=== PATIENT | female | born 1990 | race American Indian/Alaskan Native ===

== ENCOUNTER 2017-04-20 13:35 | Emergency (ER) | payer SELFPAY ==
[2017-04-20 14:56] VITALS: BP 123/70
--- NOTE | 2017-04-20 16:31 | Emergency Department Report ---
ED N/V/D HPI - General Chief complaint: Nausea/Vomiting/Diarrhea Stated complaint: 9 WEEKS , HEADACHE AND NAUSEA Time Seen by Provider: 04/20/17 16:31 Source: patient, family Mode of arrival: Ambulatory Limitations: No Limitations - History of Present Illness Initial comments: Patient reports that she is 9 weeks and she is having fever and headache and nausea on and off. She states she does not have [facility] doctor as yet. Denies any vaginal bleeding or discharge. Denies any back pain or abdominal pain. Denies any shortness of breath or chest pain. She said she drinks at least 8 glasses of water a day. Denies any urinary burning frequency or urgency. MD complaint: nausea, other (Reports at 9 weeks headache and fever) Onset/Timin -: days(s) Associated Abdominal Pain: No Pain Scale: 0 Context: other (patient here reports that she is with headache, nausea without any vomiting and fever.) Associated Symptoms: fever/chills, headaches, nausea/vomiting. denies: myalgias , chest pain, cough, diaphoresis, loss of appetite, malaise, rash, dysuria, shortness of breath, syncope, weakness - Related Data Previous Rx's Medication Instructions Recorded Last Taken Type Vit No.130/Iron/FA 1 each PO QAM #30 tablet 04/20/17 Unknown Rx [ Tablet] Allergies Allergy/AdvReac Type Severity Reaction Status Date / Time No Known Allergies Allergy Unverified 04/20/17 16:50 ED Review of Systems ROS: Stated complaint: 9 WEEKS , HEADACHE AND NAUSEA Other details as noted in HPI Comment: All other systems reviewed and negative Constitutional: fever Eyes: denies: eye pain, eye discharge, vision change ENT: denies: throat pain, congestion Respiratory: no symptoms reported Cardiovascular: denies: chest pain, palpitations, dyspnea on exertion, edema, syncope Gastrointestinal: nausea. denies: abdominal pain, vomiting, diarrhea, constipation, hematemesis, melena, hematochezia Genitourinary: abnormal menses. denies: urgency, dysuria, frequency, hematuria , discharge Musculoskeletal: arthralgia. denies: back pain, joint swelling, myalgia Skin: denies: rash Neurological: headache. denies: weakness, numbness, paresthesias, confusion, abnormal gait, vertigo ED Past Medical Hx - Past Medical History Previous Medical History?: No - Surgical History Past Surgical History?: No - Family History Family history: no significant - Social History Smoking Status: Never Smoker Substance Use Type: None Other Social History: - Medications Home Medications: Home Medications Medication Instructions Recorded Confirmed Last Taken Type Vit No.130/Iron/FA 1 each PO QAM #30 tablet 04/20/17 Unknown Rx [ Tablet] ED Physical Exam - General Limitations: No Limitations General appearance: alert, in no apparent distress - Head Head exam: Present: atraumatic, normocephalic, normal inspection - Expanded Head Exam Expanded Head exam: Absent: laceration, abrasion, contusion, hematoma, racoon eyes, berg's sign, general tenderness, tenderness of temporal artery, CSF rhinorrhea , CSF otorrhea - Eye Eye exam: Present: normal appearance, PERRL, EOMI. Absent: scleral icterus, conjunctival injection, nystagmus, periorbital swelling, periorbital tenderness Pupils: Present: normal accommodation - ENT ENT exam: Present: normal exam, normal orophraynx, mucous membranes moist, TM's normal bilaterally, normal external ear exam - Neck Neck exam: Present: normal inspection, full ROM. Absent: tenderness, meningismus, lymphadenopathy - Respiratory Respiratory exam: Present: normal lung sounds bilaterally. Absent: respiratory distress, wheezes, rales, rhonchi, stridor, chest wall tenderness - Cardiovascular Cardiovascular Exam: Present: regular rate, normal rhythm, normal heart sounds. Absent: systolic murmur, diastolic murmur - GI/Abdominal GI/Abdominal exam: Present: soft, normal bowel sounds. Absent: distended, tenderness, guarding, rebound, rigid, organomegaly, mass, bruit, pulsatile mass , hernia - Extremities Exam Extremities exam: Present: normal inspection, full ROM, normal capillary refill , other (no clubbing cyanosis or edema noted to extremities. +2 pulses to extremities. No neurovascular compromise.). Absent: tenderness, pedal edema, joint swelling, calf tenderness - Back Exam Back exam: Present: normal inspection, full ROM. Absent: tenderness, CVA tenderness (R), CVA tenderness (L), muscle spasm, paraspinal tenderness, vertebral tenderness, rash noted - Neurological Exam Neurological exam: Present: alert, oriented X3, normal gait. Absent: motor sensory deficit, reflexes normal - Expanded Neurological Exam Expanded Neurological exam: Absent: innattentive, memory loss-remote event, memory loss- recent event, ataxia, receptive aphasia, expressive aphasia, total aphasia, tremor, protecting the airway Patient oriented to: Present: person, place, time Speech: Present: fluid speech Cranial nerves: EOM's Intact: Normal, Gag Reflex: Normal, Tongue Deviation: Normal, Nystagmus: Normal, Facial Sensation: Normal Cerebellar function: Romberg: Normal Upper motor neuron: Pronator Drift: Normal, Sensory Extinction: Normal Sensory exam: Upper Extremity Light Touch: Normal, Upper Extremity Temperature: Normal, UE 2 Point Discrimination: Normal, Lower Extremity Light Touch: Normal, Lower Extremity Temperature: Normal, LE 2 Point Discrimination: Normal Motor strength exam: RUE: 5, LUE: 5, RLE: 5, LLE: 5 DTR: bicep (R): 2+, bicep (L): 2+, tricep (R): 2+, tricep (L): 2+, knee (R): 2+ , knee (L): 2+, ankle (R): 2+, ankle (L): 2+ Best Eye Response (Dousman): (4) open spontaneously Best Motor Response (Randy): (6) obeys commands Best Verbal Response (Dousman): (5) oriented [place] Total: 15 - Psychiatric Psychiatric exam: Present: normal affect, normal mood - Skin Skin exam: Present: warm, dry, intact, normal color. Absent: rash ED Course Vital Signs 04/20/17 14:48 Temperature 98.4 F Pulse Rate 77 Respiratory 18 Rate Blood Pressure 123/70 Blood Pressure 123/70 [Left] O2 Sat by Pulse 100 Oximetry - Reevaluation(s) Reevaluation #1: 04/20/17 18:15 Patient was orally challenged in the emergency room after refusing IV fluid. She was able to drink 3 cups of juice without any difficulties. Prior to juice she was given Zofran 4 mg ODT. She has vomiting in emergency room. She has no fever in emergency room. Patient says she is not exposed for a man and she had not had a [facility] visit I ordered CBC and BMP along with urinalysis and quantitative hCG but has been so the patient doesn't need all that therefore lab work was canceled and urinalysis done and showed positive and urine and UA was negative for any ketones, blood or bacterial infection. Patient's vital signs are stable. I discussed with her that she'll need follow- up with [facility] outpatient. ED Medical Decision Making - Lab Data Lab Results 04/20/17 04/20/17 Range/Units 16:54 16:59 Urine Color Straw (Yellow) Urine Turbidity Clear (Clear) Urine pH 6.0 (5.0-7.0) Ur Specific [place] 1.010 (1.003-1.030) Urine Protein <15 mg/dl (Negative) mg/dL Urine Glucose (UA) Neg (Negative) mg/dL Urine Ketones Neg (Negative) mg/dL Urine Blood Neg (Negative) Urine Nitrite Neg (Negative) Urine Bilirubin Neg (Negative) Urine Urobilinogen < 2.0 (<2.0) mg/dL Ur Leukocyte Esterase Neg (Negative) Urine WBC (Auto) 1.0 (0.0-6.0) /HPF Urine RBC (Auto) 1.0 (0.0-6.0) /HPF U Epithel Cells (Auto) 1.0 (0-13.0) /HPF Urine HCG, Qual Positive A (Negative) - Medical Decision Making ED course: Patient here reports that she is 9 weeks and she was having nausea, episodic headache and fever on and off. Patient has not seen an [facility] as yet. She is not having any vaginal bleeding, discharge, back pain or abdominal pain, urinary burning frequency or urgency. Patient here with her and and he refused lab test, to include CBC, BMP and quantitative. Urinalysis done and was normal and urine is positive. Patient did not want IV fluid. Patient was orally challenged and was able to tolerate oral liquids and emergency room without any vomiting. She was also given Zofran 4 ODT and Tylenol 500 mg by mouth for nausea and headache. She says she feels better and she is ready to go home. I discussed the patient and her urinalysis and positive urine test and that she will need to start taking vitamin and I will refer her to my [facility] clinic that she needs to call tomorrow to schedule an appointment for visit. Critical care attestation.: If time is entered above; I have spent that time in minutes in the direct care of this critically ill patient, excluding procedure time. ED Disposition Clinical Impression: related nausea, antepartum, Positive urine test Headache Qualifiers: Headache type: unspecified Headache chronicity pattern: episodic headache Intractability: not intractable Qualified Code(s): R51 - Headache Disposition: DC-01 TO HOME OR SELFCARE Is pt being admited?: No Does the pt Need Aspirin: No Condition: Stable Instructions: Morning Sickness (ED), Acute Headache (ED), (ED) Additional Instructions: Please follow up with [facility] clinic as instructed. Please start taking vitamin Please drink at least 2-3 L of fluid a day to prevent from being dehydrated Prescriptions: Vit No.130/Iron/FA [ Tablet] 1 each PO QAM #30 tablet Referrals: [facility] [Provider Group] - 04/22/17 Forms: Accompanied Note, Work/School Release Form(ED)
[2017-04-20] MEDS ORDERED: TYLENOL PO ONE (16:49)
[2017-04-20] MEDS ORDERED: NACL 0.9% 1000 ML 1,000 ML IV ONE (16:49)
[2017-04-20] MEDS ORDERED: ZOFRAN IV ONE (16:49)
[2017-04-20] MEDS ORDERED: ZOFRAN ODT PO ONE (17:06)
[2017-04-20 17:12] LABS: Bilirubin,Urine NEG (Negative); Blood,Urine NEG (Negative); Ketones,Urine NEG (Negative); Leukocyte Esterase,Urine NEG (Negative); Nitrite,Urine NEG (Negative); Protein,Urine <15 mg/dL mg/dL (Negative); Urobilinogen,Urine < 2.0 mg/dL (<2.0)
== END 2017-04-20 18:27 | disposition home or self-care (01) ==
LOC: ED 13:35
DX: O26.891 Other specified pregnancy related conditions, first trimester (principal); R11.0 Nausea; R51 Headache; R50.9 Fever, unspecified; Z3A.09 9 weeks gestation of pregnancy
CPT/HCPCS: 81001; 81025; 96374; 99283; J7030; J2405; Q0162